=== PATIENT | female | born 1980 | race Native Hawaiian/Other Pacific Islander ===

== ENCOUNTER 2018-09-15 09:44 | Inpatient (IN) | payer OTHER ==
[2018-09-15 10:13] VITALS: BMI 24.4
[2018-09-15] MEDS ORDERED: Lactated Ringer's 1,000 ML IV ONE (10:22)
[2018-09-15] MEDS ORDERED: Lactated Ringer's 1,000 ML IV SCH (11:15)
[2018-09-15 11:35] LABS: BASO % 0.3 % (0.0-2.0); EOS % 0.5 % (0.0-4.0); LYMPH # 1.5 K/uL (1.0-4.3); LYMPH % 17.7 % (20.0-40.0); MEAN CELL VOLUME 95.7 fL (81.0-99.0); MEAN CORPUSCULAR HEMOGLOBIN 32.3 pg (27.0-31.0); MEAN CORPUSCULAR HGB CONC 33.8 g/dL (33.0-37.0); MEAN PLATELET VOLUME 7.5 fL (7.2-11.7); MONO # 0.4 K/uL (0.0-0.8); MONO % 4.9 % (0.0-10.0); NEUT # 6.6 K/uL (1.8-7.0); NEUT % 76.6 % (50.0-75.0); RBC 4.32 Mil/uL (3.80-5.20); WHITE BLOOD COUNT 8.6 K/uL (4.8-10.8)
[2018-09-15 11:36] LABS: SQUAMOUS EPITHIAL 10 /hpf (0-5); URINE BACTERIA RARE (<OCC); URINE BILIRUBIN NEGATIVE (NEGATIVE); URINE BLOOD NEGATIVE (NEGATIVE); URINE CLARITY Hazy (Clear); URINE COLOR Amber (YELLOW); URINE GLUCOSE (UA) NORMAL (Normal); URINE LEUKOCYTE ESTERASE NEG Leu/uL (Negative); URINE PROTEIN 1+ mg/dL (NEGATIVE); URINE UROBILINOGEN NORMAL mg/dL (0.2-1.0)
[2018-09-15 11:49] LABS: ALB/GLOB RATIO 1.2 (1.0-2.1); ALT/SGPT 15 U/L (9-52); AST/SGOT 34 U/L (14-36); BLOOD UREA NITROGEN 10 mg/dL (7-17); CALCIUM 9.9 mg/dl (8.6-10.4); GFR NON-AFRICAN AMERICAN > 60
[2018-09-15] MEDS ORDERED: Oxytocin 30 UNIT in NS 500 ml 30 UNITS/500 ML BAG IV SCH (12:45)
[2018-09-15] MEDS ORDERED: Oxytocin 30 UNIT in NS 500 ml 30 UNITS/500 ML BAG IV ONE (12:51)
--- NOTE | 2018-09-15 14:31 | OBHP ---
Datetime: 09/15/2018 10:36 IP Adm Impression: Postterm, intrauterine IP Chief Complaint Other: Dizziness, nausea and vomiting IP Admit Plan: Admit to unit Admit Comment, IP Provider: Patient is a 37 year old at 40w4d LISA 09/11/18 by LMP 12/05/17 and confirmed by first trimester US, who presented to the hospital with a compliant of nausea, vomiting and dizziness and irregular contractions. She started feeling nauseous this morning around 3 am. She also started to feel contractions. The contractions are irregular in timing. While on the unit, edward nt denies any vaginal bleeding or discharge. Endoreses +FM. Patient was schedule for IOL on 09/17/18. issues: Denies OB Hx: 1. 2009 at term 2. 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 - Admit to labor and delivery - Probable Dehydration - Early labor - NST Reactive - IV Hydration and Antiemetics - Continuous monitoring - montioring - Admission testing: CBC, CMP, TS and UA - LR bolus then continuous at 125mL/hr - GBS negative - no antibiotics at this time - Anesthesia consult for pain management - patient would like epidural - We anticipate a vaginal delivery Plan discussed with Dr. Moise Roldann PGY2 Extremities - PN: Normal Abdomen - PN: Normal Back - PN: Not Done Breast - PN: Not Done Lungs - PN: Normal Heart - PN: Normal Thyroid - PN: Not Done Neurologic - PN: Normal HEENT - PN: Normal General - PN: Normal FHR - Baseline A Provider: 130 Membranes, Provider: Intact Contraction Comments Provider: irregular Gestation - Est Wks by US: 40.4 IP Hx Assessment: The History has been Reviewed and is Current EGA AdmitDate IP: 40.4 Vital Signs Provider: Reviewed; Within Normal Limits IP Chief Complaint: Uterine contractions; Other (Annotations: Data stored by CPN on behalf of user) Dilatation, Provider: 2 Effacement, Provider: 60 Station, Provider: -3 Genitourinary Exam: Not Done
--- NOTE | 2018-09-15 14:35 | OBADHP ---
Datetime: 09/15/2018 10:36 IP Chief Complaint Other: Dizziness, nausea and vomiting Admit Comment, IP Provider: Patient is a 37 year old at 40w4d LISA 09/11/18 by LMP 12/05/17 and confirmed by first trimester US, who presented to the hospital with a compliant of nausea, vomiting and dizziness and irregular contractions. She started feeling nauseous this morning around 3 am. She also started to feel contractions. The contractions are irregular in timing. While on the unit, patie nt denies any vaginal bleeding or discharge. Endoreses +FM. Patient was schedule for IOL on 09/17/18. issues: Denies OB Hx: 1. 2009 at term 2. 2014 spontaneous 3. Current [employer] Hx: LMP - 12/05/17 denies history of STDs Allergies: NKDA Medications: PNV Medical History: denies Surgical History: denies Social History: Denies tobacco, alcohol and illicit drug use PE: see above A/P: Patient is a 37 year old at 40w4d who presents with dizziness, nausea, vomiting and i rregular contractions. - Admit to labor and delivery - Probable Dehydration - Early labor - NST Reactive - IV Hydration and Antiemetics - Continuous monitoring of contractions and tracing - Admission testing: CBC, CMP, TS and UA - LR bolus then continuous at 125mL/hr - GBS negative - no antibiotics at this time - Anesthesia consult for pain management - patient would like epidural - We anticipate a vaginal delivery Plan discussed with Dr. Moise Willson PGY2 Pt seen and examined with Dr. Willson and all of his finginds and POC were reviewed with him and alvarez ed on. Extremities - PN: Normal Abdomen - PN: Normal Back - PN: Not Done Breast - PN: Not Done Lungs - PN: Normal Heart - PN: Normal Thyroid - PN: Not Done Neurologic - PN: Normal HEENT - PN: Normal General - PN: Normal Presentation-Admit: Vertex FHR - Baseline A Provider: 130 Membranes, Provider: Intact Contraction Comments Provider: irregular Gestation - Est Wks by US: 40.4 IP Hx Assessment: The History has been Reviewed and is Current Vital Signs Provider: Reviewed; Within Normal Limits IP Chief Complaint: Uterine contractions; Other (Annotations: Data stored by CPN on behalf of user) NICHD Variability Prov Fetus A: Moderate 6-25bpm NICHD Accel Fetus A IP Provider: 10X10 FHR Category Provider Fetus A: Category I NICHD Decel Fetus A IP Provider: None Dilatation, Provider: 2 Effacement, Provider: 60 Station, Provider: -3 Genitourinary Exam: Not Done EGA AdmitDate IP: 40.4 IP Adm Impression: Postterm, intrauterine IP Admit Plan: Admit to unit
[2018-09-15] MEDS ORDERED: Fentanyl/Bupivacaine HCl 250 ML EPI ONE (16:22)
--- NOTE | 2018-09-15 17:25 | OBPN ---
Datetime: 09/15/2018 17:14 IP Progress Impression: Normal progression of labor; Reassuring heart rate IP Informed Consent Obtain: Vaginal Delivery IP Procedures: Sterile Vag Exam IP Progress Plan: Continue present management; Augmentation; Anticipate Vaginal Delivery Membranes, Provider: Ruptured Amniotic Fluid Color, Provider: Clear Contraction Comments Provider: q2-3 min FHR - Baseline A Provider: 125 IP Progress Note Comment: Patient seen and examined at bedside. Patient is s/p epidural. She is rest ing comfortably. Reports having intermittent dizziness. VS: 113/54 SVE: 7-8/90/0 A/P: Patient is a 37 year old at 40w4d who is in active labor, s/p epidural on pitocin 10 MMU -Category I tracing -Continue pitocin for augmentation -Anticipate vaginal delivery Plan discussed with Dr Moise Mcginnis DO PGY-2 Pt seen and examined with Dr. Mcginnis and agree completely with her findings and POC. Vital Signs Provider: Reviewed NICHD Accel Fetus A IP Provider: 15X15 FHR Category Provider Fetus A: Category I NICHD Variability Prov Fetus A: Moderate 6-25bpm Dilatation, Provider: 7-8 Effacement, Provider: 90 Station, Provider: 0 NICHD Decel Fetus A IP Provider: Early Datetime: 09/15/2018 10:36 Gestation - Est Wks by US: 40.4 Presentation-Admit: Vertex
--- NOTE | 2018-09-15 17:46 | OBPN ---
Datetime: 09/15/2018 15:57 IP Progress Note Comment: Patient seen and examined at bedside. Patient is s/p SROM with clear fluid . She admits to feeling the contractions. Requesting an epidural. SVE: /-2 A/P: Patient is a 37 year old at 40w4d in labor -S/P SROM -Category I tracing, reassuring status -On pitocin 10 MMU, we will continue -Will start IV hydration with LR bolus, anesthesia notified that patient is requesting epidural -Anticipate vaginal delivery Plan discussed with Dr Moise Mcginnis DO PGY-2 Pt seen and examined with Dr. Mcginnis and I agree with her findings and POC.
[2018-09-15] MEDS ORDERED: Oxycodone/Acetaminophen 5/325 mg Tab PO PRN (18:43)
[2018-09-16 07:55] LABS: BASO % 0.3 % (0.0-2.0); EOS # 0.1 K/uL (0.0-0.7); EOS % 0.4 % (0.0-4.0); HEMOGLOBIN 12.2 g/dL (11.0-16.0); LYMPH # 1.8 K/uL (1.0-4.3); MEAN CELL VOLUME 95.5 fL (81.0-99.0); MEAN CORPUSCULAR HEMOGLOBIN 32.5 pg (27.0-31.0); MEAN PLATELET VOLUME 7.1 fL (7.2-11.7); MONO # 0.6 K/uL (0.0-0.8); MONO % 4.2 % (0.0-10.0); NEUT # 11.2 K/uL (1.8-7.0); NEUT % 82.1 % (50.0-75.0); NRBC % 0.1 % (0.0-2.0); RBC 3.76 Mil/uL (3.80-5.20)
[2018-09-16 07:59] LABS: WHITE BLOOD COUNT 13.7 K/uL (4.8-10.8)
--- NOTE | 2018-09-16 22:38 | OBPPN ---
Datetime: 09/16/2018 08:43 PP Pain Prov: Within normal limits PP Nausea Prov: Denies PP Flatus Prov: Yes PP BM Prov: No PP Breasts Prov: Normal PP Heart Prov: Normal PP Lungs Prov: Normal PP Abdomen/Uterus Prov: Normal PP Lochia Prov: Normal PP Vulva/Perineum Prov: Not Done PP CVA Tenderness Prov: Not Done PP Extremities Prov: Normal PP C/S Incision Prov: Not Applicable PP Progress Prov: Normal PP Comments Phys Exam Prov: Fundal height at level of umbilicus. Uterus is firm and non-tender PP Impression Prov: Normal progression PP Plan Prov: Continue present management PP Progress Note Prov: Patient was seen and examined this morning at bedside. No acute events overni ght as per patient. Mother and baby are doing well. Patient is feeling well and denies any pain. She has not taken any pain medications up to this point. Bleeding is minimal. She denies nausea/vomiting. +flatus and urination but has not had a bowel movement yet. Patient is alternating between breast an d bottle feedings. Patient would like to have her baby circumcised. Patient has no complaints at this time. VS: BP:98/68 T: 98.6 HR: 77 O2: 99% RA Gen: NAD, AAOX3 Cardio: RRR, normal S1, S2 Lungs: CTA b/l Abdomen: Soft, Uterus is firm/non-tender. Fundal height is at the level of the umbilicus. Extremities: no edema Assessment: Patient is a 37 year old s/p PPD#1 Plan: - Stable, afebrile - Pain control with Ibuprofen and Percocet prn - Encourage ambulation, hydration and - Continue routine care Case discussed with Dr. Stefan Xie Anamika PGY2 Atending Note: patient seen, evaluated and examined by me with the resident. I agree with the abov e as documented.
[2018-09-17] MEDS ORDERED: Benzocaine/Menthol 20%-0.5% Topical Spray (60 ml) EXT PRN (07:21)
[2018-09-17 08:08] VITALS: BP 104/69; PULSE 66; RESP 18; TEMP 97.7; O2SAT 100
[2018-09-17] MEDS ORDERED: Influenza Vaccine 60 mcg/0.5 mL SYR (4YR UP) IM ONE (12:00)
--- NOTE | 2018-09-17 13:48 | OBDCSUM ---
Datetime: 09/17/2018 12:16 Discharged to, Provider: Home Disch Instr Activity: Normal activity Disch Instr Diet: Regular Discharge Diet restrict Prov: None Discharge Time: 09/17/2018 12:30 Disch Referrals: None Disch Activity Restrictions: No exercising; No lifting; No driving; Minimize walking; Minimize stair -climbing; No sexual activity; Nothing in vagina - [place], tampons, douche Datetime: 09/17/2018 10:13 Discharged to, Provider: Home Follow up at, Provider: [facility] Disch Instr Activity: Normal activity Disch Instr Diet: Regular Discharge Instructions, Provider: Routine instructions given Discharge Diagnosis, Provider: Term Delivered Discharge Time: 09/17/2018 12:30 Follow up in weeks, Provider: October 27, 2018 Disch Referrals: None Contraception discussed, Prov: Yes Disch Activity Restrictions: No exercising; No lifting; No driving; Minimize walking; Minimize stair -climbing; No sexual activity; Nothing in vagina - [place], tampons, douche Discharge Comment, Provider: Patient was seen and examined this morning at bedside. No acute events overnight as per patient and nursing staff. Mother and baby are doing well. Patient is feeling well a nd denies any pain. Lochia is minimal. Patient is alternating between breast and bottle feedings. Rasheed brock has no complaints at this time. She denies fevers, chills, shortness of breath, chest pain, annmarie rrhea, or urinary symptoms. VS: BP:98/70 T: 98.1 HR: 76 O2: 100% RA Gen: NAD, AAOX3 Cardio: RRR, normal S1, S2 Lungs: CTA b/l Abdomen: Soft, Uterus is firm/non-tender. Fundal height is at the level of the umbilicus. Extremities: no edema Assessment: Patient is a 37 year old s/p PPD#2. Patient is progressing appropriately for post-par richie care and discharge planned for today. 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 Moise Moise, PGY-1 Pt seen and examined with Dr. Gray and discussed and agreed with his findings and POC Contraception after Delivery: Control Pill/Patch; IUD; Undecided
== END 2018-09-17 15:00 | disposition home or self-care (01) | DRG 807 ==
LOC: C.EROB 09:44 → C.4D 11:19 → C.4M 20:40
PROVIDERS: ADMIT Obstetrics & Gynecology; ATTEND Obstetrics & Gynecology
PROC: 10E0XZZ Delivery of Products of Conception, External Approach (ICD-10-PCS; principal; 2018-09-15)
DX: O48.0 Post-term pregnancy (principal); O99.284 Endocrine, nutritional and metabolic diseases complicating childbirth; E86.0 Dehydration; O21.1 Hyperemesis gravidarum with metabolic disturbance; Z3A.40 40 weeks gestation of pregnancy; Z37.0 Single live birth